=== PATIENT | female | born 1960 ===

== ENCOUNTER → 2023-08-15 | Outpatient (CLI) | payer OTHER, MEDICAID ==
[2023-08-15 12:59] LABS: Basophils # (auto) 0 10 ^3/uL (0-0.2); Basophils % (auto) 0.6 % (0.0-2.0); Eosinophils # (auto) 0.1 10 ^3/uL (0-0.8); Hematocrit 38.9 % (36.0-46.0); Hemoglobin 12.9 g/dL (12.2-16.2); Lymphocytes # (auto) 2.4 10 ^3/uL (0.4-5.4); Lymphocytes % (auto) 27.7 % (10.0-50.0); Mean Corpuscular Hgb Conc. 33.2 g/dL (32.0-36.0); Mean Corpuscular Volume 87.3 fL (80.0-100.0); Monocytes # (auto) 0.7 10 ^3/uL (0-1.3); Monocytes % (auto) 7.8 % (0.0-12.0); Neutrophils # (auto) 5.4 10 ^3/uL (1.6-8.6); Neutrophils % (auto) 62.9 % (37.0-80.0); Red Blood Cells 4.45 10^6/uL (4.0-5.20); Red Cell Distribution Width 13.7 % (11.8-14.3); White Blood Cell 8.7 10^3/uL (4.4-10.8)
[2023-08-15 13:39] LABS: Alanine Aminotransferase 15 U/L (7-40); Albumin 4.6 g/dL (3.2-4.8); Alkaline Phosphatase 96 U/L (46-116); Anion Gap 7 (5-15); Aspartate Aminotransferase 17 U/L (13-40); BUN/Creatinine Ratio 20.9 (10.0-20.0); Bilirubin, Total 0.5 mg/dL (0.2-1.0); Blood Urea Nitrogen 14 mg/dL (9-23); CRP High Sensitivity 0.38 mg/dL (<1.0); Calcium 9.9 mg/dL (8.5-10.1); Carbon Dioxide 26 mmol/L (20-30); Chloride 105 mmol/L (98-107); Glucose 85 mg/dL (74-106); Phosphorus 3.7 mg/dL (2.4-5.1); Potassium 4.4 mmol/L (3.5-5.1); Sodium 138 mmol/L (136-145)
[2023-08-15 13:40] LABS: Total Protein 8.1 g/dL (5.7-8.2)
[2023-08-15 13:54] LABS: Erythrocyte Sedimentation Rate 15 mm/hr (0-20)
[2023-08-16 07:06] LABS: Rheumatoid Arthritis Factor <10.0 IU/mL (<14.0)
[2023-08-16 08:48] LABS: Hepatitis B Surface Antibody Negative (Negative)
[2023-08-16 08:59] LABS: Hepatitis B Surface Antigen Negative (Negative)
[2023-08-16 09:06] LABS: Hepatitis B Core Total Antibod Negative (Negative)
[2023-08-16 09:20] LABS: Hepatitis B Core IgM Negative; Hepatitis C Antibody Negative (Negative)
[2023-08-17 18:06] LABS: CCP IgG/IgA Antibody 5 units (0-19)
[2023-08-18 04:06] LABS: QuantiFERON-TB Gold Plus Negative (Negative)
== END | disposition home or self-care (01) ==
LOC: LAB 12:14
PROVIDERS: ATTEND Internal Medicine Rheumatology
DX: M06.4 Inflammatory polyarthropathy (principal)
CPT/HCPCS: 36415; 80053; 82306; 83970; 84100; 85025; 85652; 86141; 86200; 86431; 86705; 86706; 86803; 87340